=== PATIENT | female | born 1975 | race Caucasian/White ===

== ENCOUNTER 2016-09-26 08:12 | Emergency (ER) | payer BC ==
[2016-09-26 08:34] LABS: COLOR YELLOW; LEUKOCYTE ESTERASE,URINE 1+ (NEGATIVE); NITRITE,URINE POSITIVE (NEGATIVE)
[2016-09-26 08:53] LABS: BACTERIA 3+ /hpf (NONE SEEN); MUCUS 2+ /lpf (NONE-1+); RBC,URINE 50-182 /hpf (0-3)
--- NOTE | 2016-09-26 09:17 | UCPHY ---
H & P Time Seen by Provider: 09/26/16 08:57 Patient Type: New HPI/ROS: CHIEF COMPLAINT: [pain in the left iliac crest region radiating to left lower quadrant since 5 this morning ] HISTORY OF PRESENT ILLNESS: [40-year-old female who felt well when she went out last last night. She did have a little trouble falling asleep as she felt unusually restless and could not hold still and had a pedal her legs and walk around paced until she was exhausted. Nonetheless there is no pain in the flank on either side or tobacco iliac crest area until she awoke later at 4-5 the morning. Then, she woke with a sense of pain in the left iliac crest area. He was very bad but then became extremely intense. She had sense of her to urinate and did so. While there she had a wave of nausea come over her along as well as diaphoresis and a sense that her vision was going in a tunnel vision fashion and failing vision fashion. She felt as if she was to pass out. Subsequently this whole set of feelings was able to be overcome, and passed, except for the pain in the flank, again, overlying the left iliac crest. The pain is actually over the left iliac crest rather than the lower about the base of the ribs. She has had kidney stones on 2 prior occasions and the pain was at that time the right and in the more typical right flank pain that we would typically see. She has no antecedent dysuria frequency or pyuria or recent UTI to speak of. As of this morning she did not notice any blood in the urine or sense of urgency as she has had in the past with prior bladder infections - which was remote. The pain that she is doing over left iliac crest is now moderate on its own was no particular medications taken at the time. ] P: No particular rhyme or reason why got better. She did not take any medicines. Not worse with movement. Q: An ache like sensation R: Left iliac crest into the left lower quadrant S: Very intense T: Since awakening at 4 5 this morning REVIEW OF SYSTEMS: Constitutional: No fever, no chills. Eyes: No discharge ENT: No sore throat. Cardiovascular: No chest pain, no palpitations. Respiratory: No cough, shortness of breath, or wheezing. Gastrointestinal: No nausea vomiting or diarrhea. No abdominal pain. Genitourinary: See above Musculoskeletal: See above Skin: No rashes. Neurological: No headache. 10 point ROS otherwise negative Physical Exam: General Appearance: Alert, no distress. Afebrile. Normal phonation. No respiratory distress. Eyes: Pupils equal and round no pallor or injection. No icterus ENT, Mouth: Mucous membranes moist. Pharynx without erythema or exudate. TM Clear. Neck: No adenopathy. Supple. No JVD. Trachea in midline. Respiratory: There are no retractions, lungs are clear to auscultation. Cardiovascular: Regular rate and rhythm. Abdomen: Soft and nontender, no masses, bowel sounds normal. Tender to the left flank, but also left the iliac crest here. Further she complains of pain with movement but it seems to be sporadic. She has mild pain with truncal twisting for me here in the stretcher however she describes a profound problem with getting out of the car related to movement Neurological: Ox3. No motor weakness. Sensation intact. Gait nl. Skin: Warm and dry, no rashes. Musculoskeletal: No joint swelling. Somewhat stiff with truncal twisting to the left. Straight leg raising negative. Extremities: No edema. Psychiatric: Normal affect. Constitutional: Initial Vital Signs Temperature (C) 36.5 C 09/26/16 08:25 Heart Rate 108 H 09/26/16 08:25 Respiratory Rate 18 09/26/16 08:25 Blood Pressure 101/84 H 09/26/16 08:25 O2 Sat (%) 97 09/26/16 08:25 O2 Delivery Mode Room Air Allergies/Adverse Reactions: No Known Allergies Allergy (Unverified 09/26/16 08:25) Home Medications: Medication Instructions Recorded Hydrocodone/APAP 5/325 [[place]ison 1 tab PO Q4 #15 tab 09/26/16 5/325 (*)] Medical Decision Making ED Course/Re-evaluation: Overtime were able to get a urine specimen however the 1st and the 2nd both seem to be contaminated. The cast was performed. This yielded essentially a normally on office without any leukocytes or significant hematuria This then made the prospect of a kidney stone fairly unlikely although I will have her strain her urine. I most commence that is musculoskeletal in nature given her history of getting into the car and the degree of discomfort icy when she moves for me here under provocative testing. [place] Prescription Drug Monitoring Program checked: no activity in last year Differential Diagnosis: Differential diagnosis includes but not limited to: Sprain, Strain, Acute Degenerative Disc, Disc Herniationa, pyelonephritis, renal colic - Data Points Laboratory Results: 09/26/16 09/26/16 09/26/16 12:00 10:30 08:20 Urine Color YELLOW YELLOW Urine Appearance CLEAR HAZY Urine pH 6.0 5.0 (5.0-7.5) (5.0-7.5) Ur Specific Eads <= 1.005 <= 1.005 (1.002-1.030) (1.002-1.030) Urine Protein NEGATIVE NEGATIVE (NEGATIVE) (NEGATIVE) Urine Ketones NEGATIVE NEGATIVE (NEGATIVE) (NEGATIVE) Urine Blood 1+ H 3+ H (NEGATIVE) (NEGATIVE) Urine Nitrate NEGATIVE NEGATIVE (NEGATIVE) (NEGATIVE) Urine Bilirubin NEGATIVE NEGATIVE (NEGATIVE) (NEGATIVE) Urine Urobilinogen 0.2 EU EU 0.2 EU EU (0.2-1.0) (0.2-1.0) Ur Leukocyte Esterase NEGATIVE NEGATIVE (NEGATIVE) (NEGATIVE) Urine RBC 0-1 /hpf /hpf 50-182 /hpf H /hpf (0-3) (0-3) Urine WBC 1-3 /hpf /hpf 10-15 /hpf H /hpf (0-3) (0-3) Ur Epithelial Cells 1+ /lpf /lpf 2+ /lpf H /lpf (NONE-1+) (NONE-1+) Amorphous Sediment 1+ /hpf /hpf (NONE-1+) Urine Bacteria TRACE /hpf H /hpf 3+ /hpf H /hpf (NONE SEEN) (NONE SEEN) Urine Mucus TRACE /lpf /lpf 1+ /lpf /lpf (NONE-1+) (NONE-1+) Ur Culture Indicated? NOT INDICATED INDICATED H (NI) (NI) Urine Glucose NEGATIVE NEGATIVE (NEGATIVE) (NEGATIVE) Urine Test NEGATIVE 09/26/16 08:20 Urine Color YELLOW Urine Appearance HAZY Urine pH 5.0 (5.0-7.5) Ur Specific Eads 1.025 (1.002-1.030) Urine Protein 2+ H (NEGATIVE) Urine Ketones 1+ H (NEGATIVE) Urine Blood 3+ H (NEGATIVE) Urine Nitrate POSITIVE H (NEGATIVE) Urine Bilirubin NEGATIVE (NEGATIVE) Urine Urobilinogen 1.0 EU EU (0.2-1.0) Ur Leukocyte Esterase 1+ H (NEGATIVE) Urine RBC 50-182 /hpf H /hpf (0-3) Urine WBC 10-15 /hpf H /hpf (0-3) Ur Epithelial Cells 2+ /lpf H /lpf (NONE-1+) Amorphous Sediment Urine Bacteria 3+ /hpf H /hpf (NONE SEEN) Urine Mucus 2+ /lpf H /lpf (NONE-1+) Ur Culture Indicated? INDICATED H (NI) Urine Glucose NEGATIVE (NEGATIVE) Urine Test Departure - Departure Disposition: Home, Routine, Self-Care Clinical Impression: Low back strain Qualifiers: Encounter type: initial encounter Qualified Code(s): S39.012A - Strain of muscle, fascia and tendon of lower back, initial encounter Condition: Good Instructions: Low Back Strain (ED) Additional Instructions: Massage as well as ice should help stretching exercises Do strain your urine for the next 3 days. Ibuprofen 3 tablets 3 times a day for the next week. Referrals: Irma Romero MD [Primary Care Provider] - As per Instructions Prescriptions: Hydrocodone/APAP 5/325 [[place] 5/325 (*)] 1 tab PO Q4 #15 tab - PQRS PQRS Measurement: NA
[2016-09-26 11:02] LABS: COLOR YELLOW; LEUKOCYTE ESTERASE,URINE NEGATIVE (NEGATIVE); NITRITE,URINE NEGATIVE (NEGATIVE)
[2016-09-26 11:15] LABS: BACTERIA 3+ /hpf (NONE SEEN); MUCUS 1+ /lpf (NONE-1+); RBC,URINE 50-182 /hpf (0-3)
[2016-09-26 11:45] VITALS: RESP 16
[2016-09-26 12:07] LABS: COLOR YELLOW; LEUKOCYTE ESTERASE,URINE NEGATIVE (NEGATIVE); NITRITE,URINE NEGATIVE (NEGATIVE)
[2016-09-26 12:17] LABS: RBC,URINE 0-1 /hpf (0-3)
[2016-09-26 12:18] LABS: AMORPHOUS 1+ /hpf (NONE-1+); BACTERIA TRACE /hpf (NONE SEEN); MUCUS TRACE /lpf (NONE-1+)
[2016-09-26 13:10] VITALS: BP 102/77; PULSE 89; TEMP 98.4; O2SAT 96
== END 2016-09-26 13:12 | disposition home or self-care (01) ==
LOC: CED 08:12
DX: S39.012A Strain of muscle, fascia and tendon of lower back, initial encounter (principal)
CPT/HCPCS: 81003-PO; 81015-PO; 81025-PO; 99203-PO; G0463-PO